=== PATIENT | male | born 1995 | race Caucasian/White ===

== ENCOUNTER 2020-04-04 17:12 | Outpatient (REF) | payer BC, SELFPAY | END 2020-04-04 17:13 | disposition home or self-care (01) | LOC: HO.LAB 17:12 | PROVIDERS: Visit Provider Internal Medicine | DX: Z20.828 Contact with and (suspected) exposure to other viral communicable diseases (principal) | CPT/HCPCS: C9803; U0003 ==

== ENCOUNTER 2022-07-01 08:47 | Emergency (ER) | payer MEDICAID, SELFPAY ==
--- NOTE | ~2022-07-01 | CT_ITS ---
EXAMINATION: CT ABDOMEN AND PELVIS WITHOUT CONTRAST CLINICAL INFORMATION: Left severe flank pain COMPARISON: None TECHNIQUE: Multidetector volumetric imaging was performed from the superior aspect of the liver through the pubic symphysis. Sagittal and coronal reformatted images were obtained on the technologist's workstation. This CT examination was performed using dose optimization techniques as appropriate, variously including the following: *Automated exposure control *Adjustment of mA and/or kV according to patient size (this includes techniques or standardized protocols for targeted exams where dose is matched to indication/reason for exam; i.e. extremities or head) *Use of iterative reconstruction technique DLP: 776 mGy-cm FINDINGS: LUNG BASES: Bibasilar atelectasis. ABDOMINAL AND PELVIC WALL: Unremarkable. LIVER AND BILIARY TREE: Unremarkable. GALLBLADDER: Unremarkable. PANCREAS: Unremarkable. SPLEEN: Unremarkable. ADRENAL GLANDS: Unremarkable. KIDNEYS AND URETERS: No hydronephrosis or nephrolithiasis. GASTROINTESTINAL TRACT: Large and small bowel are nondilated without evidence of bowel obstruction. Appendix is not identified with certainty however there are no findings to suggest appendicitis. VASCULAR: Unremarkable. LYMPH NODES/PERITONEUM: No lymphadenopathy. FREE FLUID: None. BLADDER: Unremarkable. PELVIC VISCERA: Unremarkable. OSSEOUS STRUCTURES: Transitional lumbosacral anatomy with 6 nonrib-bearing lumbar-type vertebral bodies and a transitional S1-S2 rudimentary disc space with fusion of the left S1 transverse process with the sacrum. CT/CT abdomen pelvis wo IV con IMPRESSION: 1. No hydronephrosis or nephrolithiasis.
[2022-07-01 08:49] VITALS: BP 135/87; PULSE 92; RESP 22; TEMP 36.8; O2SAT 99; BMI 39.9
[2022-07-01 09:22] LABS: MANUAL DIFF FLAG NO
[2022-07-01 09:26] LABS: Appearance Urine Clear; Color Urine Dark Yellow; Glucose Urine UA Negative (Negative); Leukocyte Esterase Urine Trace (Negative); Nitrite Urine Negative (Negative); Specific Gravity - Urine 1.025 (1.005-1.025); UMIC TRIGGER UACC YES; Urine Blood Negative (Negative); Urine Ketones 15 mg/dL (Negative); Urine Protein 30 (1+) mg/dL (Neg-Trace)
[2022-07-01 09:30] LABS: Basophils Percent Auto 0.2 % (0-2); Eosinophils Percent Auto 0.1 % (0-4); Hematocrit 45.3 % (42.0-52.0); Hemoglobin 15.6 g/dl (14.0-18.0); Imm Gran Abs Auto 0.08 X10*3/uL (0.00-0.03); Imm Gran Pct Auto 0.5 % (0.0-0.4); Lymphocytes Absolute Auto 1.1 X10*3/uL (1.2-4.9); Lymphocytes Percent Auto 6.8 % (20-40); Mean Corpuscular HGB Conc 34.4 g/dl (31.0-36.0); Mean Corpuscular Hemoglobin 29.5 pg (27.0-33.0); Mean Corpuscular Volume 85.6 fL (80.0-98.0); Mean Platelet Volume 9.8 fL (9.4-12.4); Monocytes Absolute Auto 1.4 X10*3/uL (0.1-1.2); Monocytes Percent Auto 8.6 % (2-11); Neutrophils Absolute Auto 13.7 x10*3/uL (2.0-8.3); Neutrophils Percent Auto 83.8 % (45-73); Platelet Count 214 X10*3/uL (160-400); Red Blood Count 5.29 X10*6/uL (4.60-5.80); White Blood Count 16.3 X10*3/uL (4.8-10.8)
[2022-07-01 09:31] LABS: Bacteria Urine None Seen (None Seen); Hyaline Casts Urine 0-2 /LPF (0-2); RBC Urine 0-2 /HPF (0-2); Squamous Epithelial Cell Urine 0-2 /HPF (0-2); WBC Urine 0-5 /HPF (0-5)
[2022-07-01 09:41] LABS: Alanine Aminotransferase 44 U/L (0-40); Albumin Level 4.9 g/dL (3.5-5.0); Alkaline Phosphatase 72 U/L (39-117); Anion Gap 17 (12-20); Aspartate Amino Transferase 29 U/L (5-37); Bilirubin Total 2.2 mg/dL (0.0-1.0); Blood Urea Nitrogen 13 mg/dL (9-16); Calcium 9.8 mg/dL (8.4-10.2); Carbon Dioxide 25 mmol/L (22-29); Chloride 102 mmol/L (96-108); Estimated Glomerular Filt Rate > 60; Glucose Random 124 mg/dL (60-115); Potassium 4.1 mmol/L (3.3-5.1); Sodium 140 mmol/L (135-145); Total Protein 7.7 g/dL (6.5-8.0)
--- NOTE | 2022-07-01 12:53 | ED_ITS ---
HPI - General Adult General Chief complaint: Back Pain/Injury <MEL Mckeon - Last Filed: 07/01/22 12:58> Stated complaint: back pain x 2 days, no inj <MEL Mckeon - Last Filed: 07/01/22 12:58> Time Seen by Provider: 07/01/22 13:09 <MEL Mckeon - Last Filed: 07/01/22 12:58> History of Present Illness HPI narrative: Patient complains of right-sided back pain worse with movement which began earlier today, it does not radiate there is no numbness no weakness no tingling no changes to bowel or bladder no blood in the urine no abdominal pain no chest pain, no IV drug use no fever, denies any skin rashes <MEL Blackman Last Filed: 07/29/22 14:36> Related Data Home medications: Previous Rx's Medication Instructions Recorded acetaminophen 500 mg capsule 1,000 mg PO Q8H PRN pain #30 caps 07/01/22 cyclobenzaprine 5 mg tablet 5 mg PO TID muscle spasm #10 tabs 07/01/22 ibuprofen 600 mg tablet 600 mg PO Q6H PRN pain #20 tabs 07/01/22 oxycodone 5 mg tablet 5 mg PO Q6H PRN pain #14 tabs 07/01/22 <MEL Mckeon - Last Filed: 07/01/22 12:58> Allergies/adverse reactions: Allergies Allergy/AdvReac Type Severity Reaction Status Date / Time shrimp AdvReac Mild Diarrhea Verified 07/01/22 12:55 hay Allergy Mild Rash Uncoded 07/01/22 12:55 <MEL Mckeon - Last Filed: 07/01/22 12:58> [facility] Past Medical History Source: nursing notes reviewed <MEL Blackman - Last Filed: 07/29/22 14:36> Social History Social History: Social History Advance Directives: No Advance Directives Information Provided: Yes <MEL Mckeon Last Filed: 07/01/22 12:58> Physical Exam ED Vital Signs: Vital Signs - 24 hr 07/01/22 08:49 07/01/22 12:55 07/01/22 15:16 Temperature 98.2 F 99.0 F Pulse Rate 92 89 85 Respiratory Rate 22 H 20 18 Blood Pressure 135/87 144/92 H 134/79 Pulse Oximetry 99 100 100 Oxygen Delivery Method Room Air Room Air Room Air BMI result Body Mass Index 39.9 <MEL Mckeon - Last Filed: 07/01/22 12:58> Vital Signs - 24 hr 07/01/22 08:49 07/01/22 12:55 07/01/22 15:16 Temperature 98.2 F 99.0 F Pulse Rate 92 89 85 Respiratory Rate 22 H 20 18 Blood Pressure 135/87 144/92 H 134/79 Pulse Oximetry 99 100 100 Oxygen Delivery Method Room Air Room Air Room Air BMI result Body Mass Index 39.9 <MEL Blackman - Last Filed: 07/29/22 14:36> General appearance no distress Head is normocephalic atraumatic Neck is supple Respiratory no distress Chest clear to auscultation bilateral Abdomen is soft and nontender The back had right lower lumbar and upper lumbar tenderness, no obvious CVA tenderness no focal bony tenderness, skin of the back was normal, pain is reproduced with movement Extremities full range of motion x4 Neuro gait and balance are normal, interaction comprehension and expression are normal, motor is 5/5 x4, sensation is intact and symmetrical <MEL Blackman - Last Filed: 07/29/22 14:36> Course Course Course Narrative: RME - 26 yo male with no medical history presents to the ER with worsening sharp left flank pain that started on the night of 06/29 while playing virtual reality game. Came on gradual and now severe, radiating to left ribs. No N/V/D or urinary symptoms. Labs reviewed - WBC 16K. UA with only trace leuks and 0-[address] scan for further evaluation. To go back to waiting room until treatment room is available. <MEL Mckeon - Last Filed: 07/01/22 12:58> RME - 26 yo male with no medical history presents to the ER with worsening sharp left flank pain that started on the night of 06/29 while playing virtual reality game. Came on gradual and now severe, radiating to left ribs. No N/V/D or urinary symptoms. Labs reviewed - WBC 16K. UA with only trace leuks and 0-[address] scan for further evaluation. To go back to waiting room until treatment room is available. Patient with reproducible musculoskeletal right-sided back pain had workup in the ER with a CT that was normal, and lab tests and urine were ordered from triage as well Urine no sign of infection No kidney stones, no acute finding on CT scan CBC and chemistry no acute emergent findings relevant to his back pain The white count was 16 which is related to pain and stress, he has no evidence of any bacterial infection now, no fever vitals normal no IV drug use no neurologic deficits no changes to bowel or bladder no numbness weakness or tingling ALT was 44 and bili was 2.2, but patient has no abdominal pain no vomiting no illness at this time and plan is to have those recheck it in several weeks Patient was given analgesics here and is more comfortable and is discharged ambulating easily with diagnosis musculoskeletal back pain <MEL Blackman - Last Filed: 07/29/22 14:36> Medications Administered Discontinued Medications Generic Name Dose Route Start Last Admin Trade Name Freq PRN Reason Stop Dose Admin Acetaminophen 975 mg 07/01/22 15:33 07/01/22 15:40 Acetaminophen 325 Mg Tablet PO 07/01/22 15:34 975 mg ONCE ONE Administration Ketorolac Tromethamine 30 mg 07/01/22 15:33 07/01/22 15:41 Ketorolac Tromethamine 30 Mg/Ml Vial IM 07/01/22 15:34 30 mg ONCE ONE Administration Oxycodone HCl 5 mg 07/01/22 15:33 07/01/22 15:40 Oxycodone Hcl Immed Release 5 Mg Tablet PO 07/01/22 15:34 5 mg ONCE ONE Administration <MEL Mckeon - Last Filed: 07/01/22 12:58> Medications Administered Discontinued Medications Generic Name Dose Route Start Last Admin Trade Name Freq PRN Reason Stop Dose Admin Acetaminophen 975 mg 07/01/22 15:33 07/01/22 15:40 Acetaminophen 325 Mg Tablet PO 07/01/22 15:34 975 mg ONCE ONE Administration Ketorolac Tromethamine 30 mg 07/01/22 15:33 07/01/22 15:41 Ketorolac Tromethamine 30 Mg/Ml Vial IM 07/01/22 15:34 30 mg ONCE ONE Administration Oxycodone HCl 5 mg 07/01/22 15:33 07/01/22 15:40 Oxycodone Hcl Immed Release 5 Mg Tablet PO 07/01/22 15:34 5 mg ONCE ONE Administration <MEL Blackman - Last Filed: 07/29/22 14:36> Medical Decision Making Lab Data MDM Lab Attestation statement: I reviewed the patient's lab results. <MEL Blackman - Last Filed: 07/29/22 14:36> Result Diagrams: 07/01/22 09:17 07/01/22 09:17 <MEL Mckeon - Last Filed: 07/01/22 12:58> Labs: Lab Results 07/01/22 07/01/22 07/01/22 Range/Units 09:10 09:17 09:17 WBC 16.3 H (4.8-10.8) X10*3/uL RBC 5.29 (4.60-5.80) X10*6/uL Hgb 15.6 (14.0-18.0) g/dl Hct 45.3 (42.0-52.0) % MCV 85.6 (80.0-98.0) fL MCH 29.5 (27.0-33.0) pg MCHC 34.4 (31.0-36.0) g/dl RDW 12.0 (11.0-16.0) % Plt Count 214 (160-400) X10*3/uL MPV 9.8 (9.4-12.4) fL Immature Gran % (Auto) 0.5 H (0.0-0.4) % Neut % (Auto) 83.8 H (45-73) % Lymph % (Auto) 6.8 L (20-40) % [place] % (Auto) 8.6 (2-11) % Eos % (Auto) 0.1 (0-4) % Baso % (Auto) 0.2 (0-2) % Lymph # (Auto) 1.1 L (1.2-4.9) X10*3/uL [place] # (Auto) 1.4 H (0.1-1.2) X10*3/uL Eos # (Auto) 0.0 (0.0-0.4) X10*3/uL Baso # (Auto) 0.0 (0.0-0.2) X10*3/uL Abs Immat Gran (auto) 0.08 H (0.00-0.03) X10*3/uL Absolute Neuts (auto) 13.7 H (2.0-8.3) x10*3/uL Absolute Nucleated RBC 0.000 (0.0-0.012) X10*3/uL Nucleated RBC % (auto) 0.0 (0.0-0.2) /100WBC Sodium 140 (135-145) mmol/L Potassium 4.1 (3.3-5.1) mmol/L Chloride 102 (96-108) mmol/L Carbon Dioxide 25 (22-29) mmol/L Anion Gap 17 (12-20) BUN 13 (9-16) mg/dL Creatinine 1.03 (0.5-1.4) mg/dL Estim Creat Clear Calc 138.0 Estimated GFR > 60 Random Glucose 124 H (60-115) mg/dL Calcium 9.8 (8.4-10.2) mg/dL Total Bilirubin 2.2 H (0.0-1.0) mg/dL AST 29 (5-37) U/L ALT 44 H (0-40) U/L Alkaline Phosphatase 72 (39-117) U/L Total Protein 7.7 (6.5-8.0) g/dL Albumin 4.9 (3.5-5.0) g/dL Urine Color Dark Yellow Urine Appearance Clear Urine pH 6.0 (5.0-9.0) Ur Specific Levasy 1.025 (1.005-1.025) Urine Protein 30 (1+) H (Neg-Trace) mg/dL Urine Glucose (UA) Negative (Negative) mg/dL Urine Ketones 15 (Negative) mg/dL Urine Blood Negative (Negative) Urine Nitrite Negative (Negative) Ur Leukocyte Esterase Trace H (Negative) Urine RBC 0-2 (0-2) /HPF Urine WBC 0-5 (0-5) /HPF Ur Squamous Epith Cells 0-2 (0-2) /HPF Urine Bacteria None Seen (None Seen) Hyaline Casts 0-2 (0-2) /LPF <MEL Mckeon - Last Filed: 07/01/22 12:58> Lab Results 07/01/22 07/01/2223 Range/Units 09:10 09:17 09:17 WBC 16.3 H (4.8-10.8) X10*3/uL RBC 5.29 (4.60-5.80) X10*6/uL Hgb 15.6 (14.0-18.0) g/dl Hct 45.3 (42.0-52.0) % MCV 85.6 (80.0-98.0) fL MCH 29.5 (27.0-33.0) pg MCHC 34.4 (31.0-36.0) g/dl RDW 12.0 (11.0-16.0) % Plt Count 214 (160-400) X10*3/uL MPV 9.8 (9.4-12.4) fL Immature Gran % (Auto) 0.5 H (0.0-0.4) % Neut % (Auto) 83.8 H (45-73) % Lymph % (Auto) 6.8 L (20-40) % [place] % (Auto) 8.6 (2-11) % Eos % (Auto) 0.1 (0-4) % Baso % (Auto) 0.2 (0-2) % Lymph # (Auto) 1.1 L (1.2-4.9) X10*3/uL [place] # (Auto) 1.4 H (0.1-1.2) X10*3/uL Eos # (Auto) 0.0 (0.0-0.4) X10*3/uL Baso # (Auto) 0.0 (0.0-0.2) X10*3/uL Abs Immat Gran (auto) 0.08 H (0.00-0.03) X10*3/uL Absolute Neuts (auto) 13.7 H (2.0-8.3) x10*3/uL Absolute Nucleated RBC 0.000 (0.0-0.012) X10*3/uL Nucleated RBC % (auto) 0.0 (0.0-0.2) /100WBC Sodium 140 (135-145) mmol/L Potassium 4.1 (3.3-5.1) mmol/L Chloride 102 (96-108) mmol/L Carbon Dioxide 25 (22-29) mmol/L Anion Gap 17 (12-20) BUN 13 (9-16) mg/dL Creatinine 1.03 (0.5-1.4) mg/dL Estim Creat Clear Calc 138.0 Estimated GFR > 60 Random Glucose 124 H (60-115) mg/dL Calcium 9.8 (8.4-10.2) mg/dL Total Bilirubin 2.2 H (0.0-1.0) mg/dL AST 29 (5-37) U/L ALT 44 H (0-40) U/L Alkaline Phosphatase 72 (39-117) U/L Total Protein 7.7 (6.5-8.0) g/dL Albumin 4.9 (3.5-5.0) g/dL Urine Color Dark Yellow Urine Appearance Clear Urine pH 6.0 (5.0-9.0) Ur Specific Levasy 1.025 (1.005-1.025) Urine Protein 30 (1+) H (Neg-Trace) mg/dL Urine Glucose (UA) Negative (Negative) mg/dL Urine Ketones 15 (Negative) mg/dL Urine Blood Negative (Negative) Urine Nitrite Negative (Negative) Ur Leukocyte Esterase Trace H (Negative) Urine RBC 0-2 (0-2) /HPF Urine WBC 0-5 (0-5) /HPF Ur Squamous Epith Cells 0-2 (0-2) /HPF Urine Bacteria None Seen (None Seen) Hyaline Casts 0-2 (0-2) /LPF <MEL Blackman - Last Filed: 07/29/22 14:36> Discharge Plan Discharge Clinical Impression: Back pain <MEL Mckeon - Last Filed: 07/01/22 12:58> Patient Disposition: Home, Self-Care <MEL Mckeon - Last Filed: 07/01/22 12:58> Additional Instructions: Workup today including CT and labs did not show any dangerous cause of her back pain, it is likely from inflammation of muscles or ligaments in your back Incidental findings on blood tests were an elevated bilirubin which was 2.2 and ALT of 44 and a WBC of 16, these are probably not related in any way to the back pain today but we recommend getting them recheck in 2-4 weeks at primary doctor or a clinic Return any time any worse condition or any concerns You could use analgesics and muscle relaxers as needed, most musculoskeletal back pain resolves on its own within a reasonable amount of time Follow with primary doctor as needed <MEL Mckeon - Last Filed: 07/01/22 12:58> Prescriptions: New oxycodone 5 mg tablet 5 mg PO Q6H PRN (Reason: pain) Qty: 14 0RF Rx Instructions: Partial Fill upon patient request. ibuprofen 600 mg tablet 600 mg PO Q6H PRN (Reason: pain) Qty: 20 0RF acetaminophen 500 mg capsule 1,000 mg PO Q8H PRN (Reason: pain) Qty: 30 0RF cyclobenzaprine 5 mg tablet 5 mg PO TID Qty: 10 0RF <MEL Mckeon - Last Filed: 07/01/22 12:58> Interventions: ED Discharge Assessment Last Done: 07/01/22 16:08 <MEL Mckeon - Last Filed: 07/01/22 12:58> Discharge Date/Time: 07/01/22 16:09 <MEL Mckeon - Last Filed: 07/01/22 12:58>
[2022-07-01 12:55] VITALS: BP 144/92; PULSE 89; RESP 20; O2SAT 100
[2022-07-01 15:16] VITALS: BP 134/79; PULSE 85; RESP 18; TEMP 37.2; O2SAT 100
[2022-07-01] MEDS: oxyCODONE HCl Immed Release 5 MG TABLET PO (15:40)
[2022-07-01] MEDS: Acetaminophen 325 MG TABLET 975 MG PO (15:40)
[2022-07-01] MEDS: Ketorolac Tromethamine 30 MG/ML VIAL IM (15:41)
== END 2022-07-01 16:09 | disposition home or self-care (01) ==
PROVIDERS: Emergency Provider Emergency Medicine
DX: M54.50 Low back pain, unspecified (principal); R10.31 Right lower quadrant pain; Z79.899 Other long term (current) drug therapy
CPT/HCPCS: 36415; 74176; 80053; 81001; 85025; 96372; 99284; J1885